=== PATIENT | male | born 2000 | race Hispanic/Latino ===

== ENCOUNTER 2022-10-01 16:21 | Emergency (ER) | payer OTHER ==
[~2022-10-01] VITALS: Ht 167.6 cm; Wt 54.4 kg
[2022-10-01] MEDS ORDERED: IBUPROFEN 600 MG TABLET PO ONE (19:00)
[2022-10-01] MEDS ORDERED: IBUP-2070 PO (19:57)
[2022-10-01 20:00] VITALS: BP 135/72
== END 2022-10-01 20:06 | disposition home or self-care (01) ==
LOC: EDH 16:21
DX: S20.211A Contusion of right front wall of thorax, initial encounter (principal); V89.2XXA Person injured in unspecified motor-vehicle accident, traffic, initial encounter; Y93.55 Activity, bike riding; Y92.488 Other paved roadways as the place of occurrence of the external cause; Y99.8 Other external cause status
CPT/HCPCS: 71101